=== PATIENT | male | born 1970 | race Two or more races ===

== ENCOUNTER 2022-03-31 10:55 | Emergency (ER) | payer SELFPAY ==
[~2022-03-31] VITALS: Ht 167.6 cm; Wt 73.0 kg
[2022-03-31] MEDS ORDERED: TETANUS, DIPHTHERIA, PERTUSSIS VAC/PF 0.5ML (>10YR OLD) IM ONE (11:15)
[2022-03-31] MEDS ORDERED: SODIUM CHLORIDE 0.9% 1,000 ML IV ONE (11:15)
[2022-03-31 12:18] LABS: HEMATOCRIT. 36.3 % (42.0-52.0); HEMOGLOBIN. 11.5 g/dL (14.0-18.0); MEAN PLATELET VOLUME 10.8 fl (7.4-10.4); PLATELET 280 x1000/uL (130-400); RED BLOOD CELL COUNT 4.78 mill/uL (4.7-6.1); RED CELL DISTRIBUTION WIDTH 25.9 % (11.6-14.6)
[2022-03-31 12:27] LABS: CHLORIDE 105 mEq/L (98-107)
[2022-03-31 12:41] LABS: CLARITY URINE CLEAR (CLEAR); COLOR URINE YELLOW (YELLOW); KETONES URINE NEGATIVE (NEGATIVE); LEUKOCYTE ESTERASE URINE NEGATIVE (NEGATIVE); NITRITE URINE NEGATIVE (NEGATIVE); OCCULT BLOOD URINE NEGATIVE (NEGATIVE); PROTEIN URINE NEGATIVE (NEGATIVE); SPECIFIC GRAVITY URINE 1.006 (1.005-1.030)
[2022-03-31 12:44] LABS: ETHANOL BLOOD 448 mg/dL
[2022-03-31 12:51] LABS: PLATELET ESTIMATE NORMAL
[2022-03-31 12:59] LABS: *AMPHETAMINES SCREEN URINE NEGATIVE (NEGATIVE); *BARBITURATES SCREEN URINE NEGATIVE (NEGATIVE); *BENZODIAZEPINES SCREEN URINE NEGATIVE (NEGATIVE); *COCAINE SCREEN URINE PRESUMTIVE POSITIVE (NEGATIVE); CANNABINOID URINE SCREEN NEGATIVE (NEGATIVE); METHADONE URINE SCREEN NEGATIVE (NEGATIVE); OPIATES URINE SCREEN NEGATIVE (NEGATIVE); PHENCYCLIDINE URINE SCREEN NEGATIVE (NEGATIVE)
[2022-03-31 14:09] VITALS: BP 152/103
== END 2022-03-31 14:10 | disposition left against medical advice (07) ==
LOC: ER 11:05 → EDBD 11:05 → ER 14:10
DX: F10.129 Alcohol abuse with intoxication, unspecified (principal); S01.01XA Laceration without foreign body of scalp, initial encounter; F15.10 Other stimulant abuse, uncomplicated; R51.9 Headache, unspecified; Z13.9 Encounter for screening, unspecified; W18.30XA Fall on same level, unspecified, initial encounter; Y93.89 Activity, other specified; Y92.89 Other specified places as the place of occurrence of the external cause; Y99.8 Other external cause status; Y90.8 Blood alcohol level of 240 mg/100 ml or more
CPT/HCPCS: 12001; 36415; 70450; 71045; 72125; 80053; 80305; 80307; 80320; 80329; 81003; 83690; 85025; 90471; 90715; 96360; 96361; 99285; J7030; Z7610; G0480